=== PATIENT | female | born 1970 | race Caucasian/White ===

== ENCOUNTER → 2024-04-23 08:14 | Outpatient (REF) | payer OTHER, SELFPAY | LOC: WDC 08:14 | PROVIDERS: ATTENDING PHYSICIAN Family Medicine | DX: Z12.31 Encounter for screening mammogram for malignant neoplasm of breast (principal) | CPT/HCPCS: 77063; 77067 ==

== ENCOUNTER → 2024-09-24 08:02 | Outpatient (REF) | payer OTHER, SELFPAY | LOC: HWRAD 08:02 | PROVIDERS: ATTENDING PHYSICIAN Obstetrics & Gynecology; FAMILY PHYSICIAN Family Medicine | DX: R10.31 Right lower quadrant pain (principal) | CPT/HCPCS: 76830; 76856 ==

== ENCOUNTER → 2025-05-15 19:33 | Outpatient (REF) | payer OTHER, SELFPAY | LOC: WDC 19:33 | PROVIDERS: ATTENDING PHYSICIAN Family Medicine | DX: Z12.31 Encounter for screening mammogram for malignant neoplasm of breast (principal) | CPT/HCPCS: 77063; 77067 ==

== ENCOUNTER 2025-06-01 09:13 | Emergency (ER) | payer OTHER, SELFPAY ==
[2025-06-01] VITALS (7 sets, daily range): BP systolic 84–138; BP diastolic 50–76
[2025-06-01] MEDS: NSS 1000 IV (09:52)
[2025-06-01] MEDS: TORADOL 15 MG IV (09:52)
[2025-06-01 10:05] LABS: Urine Character Clear (Clear)
[2025-06-01 10:07] LABS: Hematocrit 44.3 % (37.0-47.0); Hemoglobin 14.8 g/dL (12.0-16.0); Mean Corp Hgb Conc. 33.4 g/dL (33.0-37.0); Mean Corpuscular Volume 84.4 fL (81.0-99.0); Nucleated Red Blood Cells % 0 %; Platelet Count 369 10^3/uL (130-400); Red Cell Dist. Width 13.3 % (11.5-14.5)
--- NOTE | 2025-06-01 10:08 | ED.GENMED ---
History of Present Illness
General
Chief Complaint: Abdominal Pain
Source: patient
Exam Limitations: none
Time Seen by Provider: 06/01/25 09:21
Nursing documentation reviewed up to this point in time: agreed with
History of Present Illness
History of Present Illness:
The patient is a healthy 55-year-old female who presents to the emergency department for evaluation of severe lower abdominal pain. Patient states she has been experiencing intermittent right pelvic discomfort over the past 2 weeks however
yesterday pain became much more severe and located across the entire lower abdomen. Fortunately she was able to sleep however the pain woke her up this morning again and has been constant.
She describes a severe cramping pain across her entire lower abdomen similar to that of previous labor pains. She report mild associated nausea as well as some radiation of pain into her lower back. She denies any known fever or episodes of
vomiting. She has not had any dysuria. No chest pain or shortness of breath.
She states her bowel movements are generally abnormal however does not note any obvious change from baseline.
Patient states she is perimenopausal and her periods been irregular over the past few years. She did start what she believes to be a menstrual period yesterday. This will be her first period in the past 5 months.
She has a history of a known fibroid.
Past History
Past History
ED Past Medical History: Other (Urinary tract infection)
ED Past Surgical History: None and
Social History
Personal:
Living: with family
Employment: Employed
Review of Systems
Review of Systems
Allergies reviewed?: Yes
All Other Systems: ROS reviewed and negative except as documented in HPI and ROS
Phy Exam
Physical Exam
Physical Exam:
Vitals: Mildly hypertensive, otherwise vital signs stable. Afebrile
General: Patient is moderately uncomfortable due to pain, pacing throughout room
Skin: Warm and dry, no rashes or lesions
Head: Normocephalic, atraumatic
Eyes: Sclera nonicteric.
Throat: Protecting airway
Neck: Normal ROM, no cervical spine tenderness, no meningismus
Cardiac: Regular rate and rhythm, no murmurs.
Pulm: Normal respiratory effort, no wheezes, rales, rhonchi heard on exam
Abdomen: Abdomen soft. Moderate tenderness across entire lower abdomen, no focal tenderness McBurney's point. No rebound tenderness or guarding. No tenderness in right upper quadrant. No CVA tenderness.
Pelvic: External genitalia normal appearing without lesions, ulcerations, or adenopathy. Vaginal vault without obvious lesions or ulcerations. Bright red blood from cervical os without clots. No cervical motion tenderness
Extremities: No evidence of cyanosis or edema.
Neuro: AAOx3. CN II-XII intact. No focal neurologic deficits.
Psychiatric: Normal affect.
Course
Orders/Labs/Results
Orders:
Orders
06/01/25 09:42
CT Abd/pelvis W Iv Cont Urgent
Comment:
Reason For Exam: Lower abdominal pain R>L
0.9% Sodium Chloride 1000 ml [Nss] 1,000 ml IV BOLUS
Ketorolac [Toradol] 15 mg IV NOW STA
Test Result ONCE
06/01/25 09:44
Complete Blood Count/With Diff Urgent
Comprehensive Metabolic Panel Urgent
HCG, Serum Qualitative Screen Urgent
06/01/25 09:56
Urinalysis Reflex To Culture Urgent
Date Specimen was Collected: 06/01/25
Time Specimen was Collected: 09:55
Urine Microscopic Reflex Cult Urgent
Urine Culture Urgent
MARY Source: U
Specimen Description:
Date Specimen was Collected: 06/01/25
Time Specimen was Collected: 09:55
06/01/25 12:07
Pelvis & Transvaginal US [US Pelvis W Transvag Combined] Urgent
Comment:
Reason For Exam: Lower abdominal pain, vaginal bleeding
06/01/25 15:21
Tranexamic Acid [Cyklokapron] 1,300 mg PO NOW STA
Abnormal Lab Results
06/01/25 06/01/25
09:44 09:56
WBC 14.2 H 10^3/uL
(4.8-10.8)
Absolute Neuts (auto) 9.3 H 10^3/uL
(1.4-6.5)
Absolute Lymphs (auto) 3.7 H 10^3/uL
(1.2-3.4)
Absolute Monos (auto) 0.9 H 10^3/uL
(0.1-0.6)
Chloride 110 H mmol/L
(98-107)
BUN 18 H mg/dl
(7-17)
Ur Occult Blood Reflex 4+ A
(Negative)
Leukocyte Esterase Rfl 1+ A
(Negative)
Urine Bacteria (Reflex) Few A
(Negative)
06/01/25 09:44
06/01/25 09:44
Vital Signs
Initial and Last Documented VS:
Initial Vital Signs
Temp Pulse Resp BP Pulse Ox
98.4 F 85 20 138/76 99
06/01/25 09:16 06/01/25 09:16 06/01/25 09:16 06/01/25 09:16 06/01/25 09:16
Last Documented Vital Signs
Temp Pulse Resp BP Pulse Ox
98.4 F 82 18 127/74 97
06/01/25 09:16 06/01/25 10:20 06/01/25 10:20 06/01/25 14:51 06/01/25 14:26
MDM/Problems Addressed
Differential Diagnosis Includes:
Not limited to: Renal colic, UTI, appendicitis, diverticulitis, ovarian cyst, etc.
MDM/Problems Addressed:
55-year-old female presenting with lower abdominal cramping as well as vaginal bleeding. She is perimenopausal, started with vaginal bleeding yesterday which would be her first period in the past 5 months. Today�she is passing small clots with
significant lower abdominal cramping. No fevers, nausea, or vomiting. Patient hemodynamically stable on arrival and afebrile. On exam�patient pacing secondary to pain. Abdomen is soft with mild tenderness across entire lower abdomen/pelvic
region. Pelvic exam reveals bright red blood from cervical os without any clots. Differential broad however suspect abnormal uterine bleeding secondary to perimenopausal period/possible history of fibroids. Other considerations would include
malignancy, etc. ED plan: Labs, UA. Lower abdominal cramping possible menstrual related however�given significant tenderness on exam�will obtain CT scan. Will give IV Toradol for pain.
Update: Patient has had significant improvement in cramping following IV Toradol. She has had a few episodes of 'gushing 'of blood while in the department. Her labs significant for leukocytosis of 14.2. Her hemoglobin normal at 14.8. Chemistry
unremarkable. test negative and urine shows no evidence of infection. CT scan shows uncomplicated colitis and fluid within endometrium as well as left adnexal cyst. Given patient concern for significant vaginal bleeding�will perform
dedicated pelvic ultrasound. She remains with stable vital signs.
Update: Pelvic ultrasound without any acute abnormalities. Her pain has remained significantly improved following initial dose of Toradol and is not required additional pain medication. She has remained hemodynamically stable and normotensive.
She feels better since arriving to the emergency department. Leukocytosis noted however patient is afebrile without any other symptoms of an infectious process. Suspect patient's presenting symptoms likely related to vaginal bleeding/menstruation.
Shared decision making with patient regarding initiating antibiotics and will plan to hold for now. Brief discussion with FUEL CELL BATTERY TECHNICIAN on-call, will initiate TXA and outpatient follow-up with her primary FUEL CELL BATTERY TECHNICIAN. Very strict return precautions including
any persistent/heavy bleeding or any signs of worsening infection. Patient comfortable with plan. Patient ambulating out of department without difficulty.
Chronic conditions affecting care:
N/A
Acute Exacerbation and/or Progression of Chronic Illness:
N/A
*Radiology
Radiology exam reviewed: radiology read reviewed
*Pulse Oximetry
SaO2: 99
Oxygen Mode of Delivery: Room air
Patient hypoxic: no
*EKG
Interpreted by ED Provider?: NA
*Snuff Packing Machine Operator Interpretation
Rate: Snuff Packing Machine Operator- N/A
*Critical Care Note
Total Time (30-74mins, 75-104mins- exclusive of procedures): Not Applicable
Patient Management
Discussion with other providers: Stave Log Ripsaw Operator (Discussed with FUEL CELL BATTERY TECHNICIAN)
ED Attending Note
-
Portions of this chart may have been created with voice recognition software.� Occasional wrong word or��sound alike� substitutions may have occurred due to the inherent limitations of voice recognition software.
Discharge Plan
Departure
Patient Disposition: Home (Routine Discharge)
Date of Disposition: 06/01/25
Time of Disposition: 15:31
Patient with high blood pressure during this ER visit?: Yes
Discharge Problem:
Vaginal bleeding
Instructions: Heavy periods - ED discharge instructions, BLOOD PRESSURE
Prescriptions:
New
tranexamic acid 650 mg tablet
1,300 mg PO TID 5 Days Qty: 30 0RF
No Action
ergocalciferol (vitamin D2) 50,000 UNITS capsule
100,000 units PO SUTH
multivitamin 1 EACH tablet
1 ea PO DAILY
bisacodyl [Fleet Bisacodyl] 37 ML enema
37 ml NE 2200,0900
Patient Comments:
Patient also administered on 04/08/21 @ 2200.
Referrals:
Erich Abdi MD [Family Provider, Family Practice] - Follow up in 5-7 days
Activity Restrictions/Additional Instructions:
RETURN TO THE EMERGENCY DEPARTMENT ANY FEVER, CHILLS, WORSENING/PERSISTENT ABDOMINAL PAIN, PERSISTENT OR WORSENING VAGINAL BLEEDING, LIGHTHEADEDNESS/DIZZINESS, SHORTNESS OF BREATH OR EPISODES OF FAINTING, OR ANY OTHER CONCERNS
- As discussed�your white blood cell count was elevated in the emergency department. Please have this repeated with your primary care to ensure trending down.
- A prescription for tranexamic acid was sent to your pharmacy. You can take this 3 times a day for the next 5 days until vaginal bleeding stops.
- As discussed�it is very important you follow-up with your FUEL CELL BATTERY TECHNICIAN for further evaluation/management next week and to ensure bleeding resolves
- Is important stay well-hydrated. You can take Tylenol and/or Motrin as needed for pain.
Monitor your symptoms closely and return to the emergency department with any acute worsening/new symptoms or any signs of persistent bleeding/signs of infection
Interventions
Interventions:
*Risk Screen - Suicide Last Done: 06/01/25 09:16
*General Assessment Last Done: 06/01/25 15:35
*Neglect/Abuse Screening Last Done: 06/01/25 15:35
*ED- Fall Risk Assessment Last Done: 06/01/25 15:35
*Nursing Disposition Last Done: 06/01/25 15:35
AM-Worarc-Apoeewrpct Assessment Last Done: 06/01/25 09:38
Discharge Date and Time
Discharge Date/Time: 06/01/25 15:35
Print Language: CITIZEN OF [place]
[2025-06-01 10:15] LABS: HCG, Serum Qualitative Screen Negative
[2025-06-01 10:24] LABS: ALT (SGPT) 17 U/L (0-35); AST (SGOT) 17 U/L (14-36); Albumin 4.1 g/dl (3.5-5.0); Alkaline Phosphatase 82 U/L (38-126); Blood Urea Nitrogen 18 mg/dl (7-17); Calcium 9.1 mg/dl (8.4-10.2); Carbon Dioxide 24 mmol/L (22-30); Chloride 110 mmol/L (98-107); Glucose 91 mg/dl (70-99); Potassium 4.3 mmol/L (3.5-5.1); Sodium 141 mmol/L (135-145); Total Protein 7.0 g/dl (6.3-8.2); eGFR > 60.00
[2025-06-01 10:30] LABS: Urine Red Blood Cell 0-2 /HPF (0-2); Urine Squamous Cell >30 /LPF (Few)
[2025-06-01] MEDS: CYKLOKAPRON 1300 MG PO (15:31)
== END 2025-06-01 15:35 | disposition home or self-care (01) ==
LOC: EMR 09:13
PROVIDERS: Physician Assistant; EMERGENCY PHYSICIAN Emergency Medicine; FAMILY PHYSICIAN Family Medicine
DX: N93.9 Abnormal uterine and vaginal bleeding, unspecified (principal); R10.30 Lower abdominal pain, unspecified; Z87.440 Personal history of urinary (tract) infections
CPT/HCPCS: 99284; 74177; 76830; 76856; 80053; 81003; 81015; 84703; 85025; 87086; Q9967